=== PATIENT | female | born 1995 | race Caucasian/White ===

== ENCOUNTER 2024-01-17 00:07 | Emergency (ER) | payer BC ==
[~2024-01-17] VITALS: Ht 162.6 cm; Wt 49.9 kg
[~2024-01-17 00:07] MED LIST: ALBU90OI INH; ALBU90OI61 INH; AMOCLA500 PO; Albuterol Sulf8.5 GM IH; BENADRYL; CODACE30 PO; GUAI600ER PO; HYDACE5 PO; IBUP400 PO; MOMENI; Prednisone20 MG PO; RXANTBENOT AU; RXCODACET PO; SERT50 PO
[2024-01-17 00:11] VITALS: BP 142/83
[2024-01-17] MEDS ORDERED: Ondansetron 4 MG SoluTab SL ONE (00:20)
[2024-01-17] MEDS ORDERED: Mag Hydrox/AL Hydrox/Simeth 30 ML UDC PO ONE (00:25)
[2024-01-17] MEDS ORDERED: NS 500 ML IV SCH (00:25)
[2024-01-17] MEDS ORDERED: Ondansetron HCl 2 MG / ML 2ML Vial IV ONE (00:30)
[2024-01-17] MEDS ORDERED: Metoclopramide HCl 5MG / ML 2ML Vial IV ONE (00:55)
[2024-01-17] MEDS ORDERED: NS 1,000 ML IV SCH (01:15)
[2024-01-17] MEDS ORDERED: Droperidol 5 mg/2 ml Vial IV ONE (01:15)
[2024-01-17] MEDS ORDERED: RX Prepack 2 Tabs Ondansetron ODT 4MG UD ONE (02:20)
== END 2024-01-17 02:33 | disposition home or self-care (01) ==
LOC: ER 00:07
DX: F10.129 Alcohol abuse with intoxication, unspecified (principal); E86.0 Dehydration; R11.2 Nausea with vomiting, unspecified; J45.909 Unspecified asthma, uncomplicated
CPT/HCPCS: 96361; 96374; 96375; 99284-25; A9270; J1790; J2405; J2765; J7030